=== PATIENT | male | born 1965 | race Caucasian/White ===

== ENCOUNTER → 2017-11-04 | Outpatient (CLI) | payer OTHER ==
[~2017-11-04] MED LIST: GLUC100026 PO
== END ==
LOC: LAB 15:28
PROVIDERS: ATTEND Internal Medicine
DX: Z00.00 Encounter for general adult medical examination without abnormal findings (principal); R73.09 Other abnormal glucose
CPT/HCPCS: 81001

== ENCOUNTER → 2017-11-30 | Outpatient (CLI) | payer OTHER | LOC: RESP 02:03 | PROVIDERS: ATTEND Internal Medicine | DX: G47.30 Sleep apnea, unspecified (principal) ==

== ENCOUNTER 2017-12-23 01:36 | Day surgery (SDC) | payer OTHER ==
[~2017-12-23] VITALS: Ht 172.7 cm; Wt 96.2 kg
[2017-12-23] MEDS ORDERED: NORMOSOL R SOLN(*) 1000 ML BAG 1,000 ML IV PRN (10:10)
[2017-12-23] MEDS ORDERED: LIDOCAINE/SOD BICARB 8.4% SYR ID ONE (10:10)
[2017-12-23 10:12] VITALS: BP 138/88
[2017-12-23 12:16] VITALS: BP 97/75
--- NOTE | 2017-12-23 12:16 | Short(Outpt) Discharge Summary ---
Discharge Summary Reason for Hosp/Final Diag: (1) Colon cancer screening Status: Chronic Hospital Course & Plan: Colonoscopy with polypectomy x1 completed without problems. Departure Discharge to: Home, Self Care Discharge Instructions Home Meds Reported Medications Glucosamine Sulfate 2KCL (GLUCOSAMINE) 1,000 Mg Tablet, 1000 MG PO DAILY 11/04/17 Diet: Regular Activity: As Tolerated Special Instructions: Your colonoscopy was completed without problems and your prep was excellent (Good Job!!). I removed 1 polyp from your colon and it was sent to pathology. My office will call you in the next week or two and let you know what the polyp is and when your next colonoscopy should be (either 5 or 10 years) depending on the pathology results. RANDELL CUELLAR MD Dec 23, 2017 12:16
[2017-12-23 12:30] VITALS: BP 116/74
[2017-12-23] MEDS ORDERED: PROPOFOL EMUL(*) 10MG/ML 20 ML 60 ML ONE (12:33)
[2017-12-23 12:45] VITALS: BP 111/81
[2017-12-23 12:48] VITALS: BP 115/76
[2017-12-23 12:49] VITALS: BP 115/87
== END 2017-12-23 12:58 | disposition home or self-care (01) ==
LOC: OR 01:36
PROVIDERS: ATTEND Surgery
DX: Z12.11 Encounter for screening for malignant neoplasm of colon (principal); K63.5 Polyp of colon
CPT/HCPCS: 00811; 45385; 88305; J2704